=== PATIENT | male | born 2005 | race Caucasian/White ===

== ENCOUNTER 2025-06-04 22:22 | Emergency (ER) | payer OTHER, MEDICAID, SELFPAY ==
[2025-06-04 22:24] VITALS: BP 146/76; PULSE 79; RESP 16; TEMP 36.8; O2SAT 97; BMI 26.4
--- NOTE | 2025-06-04 23:37 | ED_ITS ---
HPI - Wound/Laceration General Chief Complaint: Wound/Laceration Stated Complaint: Fish hook on L arm Time Seen by Provider: 06/04/25 23:09 Source: patient Mode of arrival: ambulatory Limitations: no limitations History of Present Illness ED Provider: [facility] HPI narrative: Patient is a 20-year-old male presenting to the ED after he got to out of 3 prongs of a treble hook caught in his left anterior forearm while fishing earlier today. Patient does not know the date of last tetanus shot, denies other acute somatic complaint. Related Data Previous Rx's ?Medication ?Instructions ?Recorded cephalexin 500 mg capsule 500 mg PO BID #14 caps 06/04 Allergies Allergy/AdvReac Type Severity Reaction Status Date / Time No Known Allergies (No Known Allergy Verified 06/04/25 22:29 Allergies*) Review of Systems Review of Systems: Yes all other systems are reviewed and are negative PMFSH Social History Social History Do you have a plan to hurt others: No Plan Physical Exam Vital Signs: Vital Signs: Last Vital Signs Temp 98.3 F 06/04/25 22:24 Pulse 79 06/04/25 22:24 Resp 16 06/04/25 22:24 BP 146/76 H 06/04/25 22:24 Pulse Ox 97 06/04/25 22:24 O2 Del Method Room Air 06/04/25 22:24 BMI result Body Mass Index 26.4 CONSTITUTIONAL: The patient appears non-toxic, well nourished and in no acute distress. Vital signs as documented. HEAD: Atraumatic, normocephalic. EYES: EOMs grossly intact, pupils equal, conjunctiva clear, no exudate. ENT: Nares patent, no discharge. Airway patent, no audible stridor, visible mucosa is pink and moist without noted lesions. NECK: trachea is midline, no obvious masses or gross abnormalities. CHEST: Symmetric movement, normal appearance. LUNGS: Non-labored work of breathing. CARDIAC: No evidence of hypoperfusion. ABDOMEN: Nondistended, no obvious injury. : Deferred. EXTREMITIES: There is a fishhook noted with 2 barbs beneath the skin on the anterior proximal left forearm, distal CSM intact, 2+ radial pulse. Moves all other extremities spontaneously without reported pain. No obvious other injury or deformity noted. NEURO: Alert and oriented x3, CN II-XII appear grossly intact. Cerebellar Functioning grossly intact. Speech clear and appropriate. SKIN: Warm, dry, color appropriate. No rashes or lesions noted. Medications Administered Discontinued Medications Generic Name Dose Route Start Last Admin Trade Name Kyara PRN Reason Stop Dose Admin Cephalexin HCl 500 mg 06/04/25 23:31 06/04/25 23:46 Cephalexin 500 Mg Capsule PO 06/04/25 23:32 500 mg ONCE ONE Administration Diphtheria/Tetanus/Acell Pertussis 0.5 ml 06/04/25 23:30 06/04/25 23:46 Diphth,Pertus(Acell),Tet Adult 0.5 Ml Syringe IM 06/04/25 23:31 0.5 ml .ONCE ONE Administration Medical Decision Making Medical Decision Making MDM Narrative: 11:56 PM 06/04/2025 ([facility]): 20-year-old male presenting to the ED with 2 barbs of a treble fishhook in his left forearm. Fish hooks were both removed without complication, Tdap updated. Procedures Foreign Body Removal Site: left and upper extremity (forearm) Description of foreign body: fish hook (x2) Sedation/Analgesia: other (Local infiltration of Lidocaine) Technique: removal with forceps (Area cleaned and prepped, lidocaine infiltrated, fish hooks pushed through skin and removed via exit wound) Confirmed by:: direct visualization Complications: none Post-procedure exam: awake, alert, normal BP, normal HR and normal O2 sat Neurovascular: no change from pre-procedure Discharge Plan Discharge Clinical Impression: Fish hook in forearm Patient Disposition: Home, Self-Care Instructions: Soft Tissue Foreign Body (ED) Additional Instructions: Thank you for choosing [facility]'s Emergency Department for your care today. Thankfully your fish hooks were successfully removed following administration of local anesthetics. There is no indication for admission to the hospital or continued ED observation, and it is safe to discharge you home. As a precaution we are treating you against infection with cephalexin, please take twice a day for the next 7 days. You should take alternating (staggered) doses of ibuprofen 600mg and Tylenol 1000mg every 4 hours as needed for any additional pain. You may also apply ice for 20 minutes every hour. Please stay well hydrated and get plenty of rest. Please follow up with your primary care physician for re-evaluation, additional management of your symptoms, and continued preventative care. If you do not have a primary care physician, please call the [facility] at [phone] to establish a new primary care physician. While waiting to establish your new primary care physician, you can call our [facility] at [phone] for non-emergency needs. Please return to the emergency department if you develop a severe or sudden change in your symptoms, a fever over 100.4 that does not improve with Tylenol or Ibuprofen, recurrent vomiting, or any other new or worsening symptoms or concerns. Prescriptions: New cephalexin 500 mg capsule 500 mg PO BID Qty: 14 0RF Referrals: Physician,None [Primary Care Provider, Medical] Clinical Impression: Fish hook in forearm Print Language: Khmer
[2025-06-04] MEDS: Diphth,Pertus(ACell),Tet Adult 0.5 ML SYRINGE IM (23:46)
[2025-06-05] MEDS: Lidocaine HCl 1 % MPF 5 ML VIAL INFILTRATI (00:08)
[2025-06-05 00:25] VITALS: BP 146/76; PULSE 79; RESP 16; TEMP 36.8; O2SAT 97
== END 2025-06-05 00:26 | disposition home or self-care (01) ==
LOC: HO.ED 06-05 00:20
PROVIDERS: Emergency Provider Emergency Medicine
DX: S51.822A Laceration with foreign body of left forearm, initial encounter (principal); M60.232 Foreign body granuloma of soft tissue, not elsewhere classified, left forearm; W26.9XXA Contact with unspecified sharp object(s), initial encounter; Y93.89 Activity, other specified; Y92.9 Unspecified place or not applicable; Y99.8 Other external cause status; Z23 Encounter for immunization
CPT/HCPCS: 10120; 90471; 90715; 99283; 99284; J2003